=== PATIENT | male | born 1995 | race Caucasian/White ===

== ENCOUNTER 2021-12-30 09:18 | Emergency (ER) | payer BC, MEDICAID ==
[~2021-12-30] VITALS: Ht 162.6 cm; Wt 71.1 kg
[2021-12-30 09:33] VITALS: BP 106/70
--- NOTE | 2021-12-30 09:36 | NUR ---
Patient was seen and assessed by teofilo Cardenas NP in triage.
== END 2021-12-30 09:48 | disposition home or self-care (01) ==
LOC: ER 09:19
DX: F15.10 Other stimulant abuse, uncomplicated (principal)
CPT/HCPCS: 99281